=== PATIENT | female | born 1970 | race Caucasian/White ===

== ENCOUNTER 2018-10-31 22:29 | Emergency (ER) | payer MEDICAID ==
[~2018-10-31] VITALS: Ht 162.6 cm; Wt 88.0 kg
[2018-10-31] MEDS ORDERED: morphine 4 MG/ML inj SYRINge IM ONE (23:25)
[2018-10-31] MEDS ORDERED: HYDR-4383 PO (23:46)
[2018-10-31 23:56] VITALS: BP 131/78
== END 2018-10-31 23:58 | disposition home or self-care (01) ==
LOC: ER 22:30
DX: M25.562 Pain in left knee (principal); Z91.040 Latex allergy status; Z79.899 Other long term (current) drug therapy; Z98.890 Other specified postprocedural states
CPT/HCPCS: 73560; 96372; 99284; J2270

== ENCOUNTER 2018-11-16 14:24 | Emergency (ER) | payer MEDICAID ==
[~2018-11-16] VITALS: Ht 162.6 cm; Wt 91.0 kg
[~2018-11-16 14:24] MED LIST: ENOX40SY7 SQ; FLUO20CA22 PO; HYDR-4383 PO; ROPI0.2534 PO; SIMV20TA PO
[2018-11-16] MEDS ORDERED: OXYC-138 PO (16:31)
[2018-11-16] MEDS ORDERED: HYDR50TA65 PO (16:31)
[2018-11-16] MEDS ORDERED: GABA600T13 PO (16:31)
--- NOTE | 2018-11-16 16:46 | NUR ---
NURSING NOTE: Pt requested warm blanket. Resting on R side, no s/s distress at this time. Awaiting medication orders. RR even unlabored.
[2018-11-16] MEDS ORDERED: hydrOXYzine 25 MG tablet PO PRN (17:05)
[2018-11-16] MEDS ORDERED: oxyCODONE/APAP 10/325mg tablet PO PRN (17:05)
[2018-11-16 17:27] LABS: URINE AMPHETAMINE SCREEN NEGATIVE (Neg); URINE BARBITUATE SCREEN NEGATIVE (Neg); URINE BENZODIAZEPINES SCREEN NEGATIVE (Neg); URINE CANNABINOID SCREEN NEGATIVE (Neg); URINE COCAINE SCREEN NEGATIVE (Neg); URINE METHADONE SCREEN NEGATIVE (Neg); URINE OPIATE SCREEN NEGATIVE (Neg); URINE PHENCYCLIDINE SCREEN NEGATIVE (Neg)
[2018-11-16 17:30] VITALS: BP 103/56
--- NOTE | 2018-11-16 18:20 | NUR ---
Spoke to pt. She states that she wants to leave and is scared to go an inpatient psych facility. SHe just wants to go home, states she does not have SI at this time, even though she did state she had those feelings the hour prior. I discussed with Dr Amin who states that she does not have a mental health hold and she can leave whenever she wants. When Dr Amin came over to d/w pt she changed her mind and wants to stay. Dr Amin advised her to at least stay for the tele psyche consult. If she wants to leave in the meantime she can be discharged
[2018-11-16] MEDS ORDERED: atorvastatin 10mg tablet PO SCH (21:00)
[2018-11-16] MEDS ORDERED: ROPINIRole 1mg tablet PO SCH (21:00)
[2018-11-17] MEDS ORDERED: gabapentin 300mg capsule PO SCH
[2018-11-17] MEDS ORDERED: FLUoxetine 20mg capsule PO SCH (08:00)
== END 2018-11-16 19:01 | disposition home or self-care (01) ==
LOC: ER 14:24
DX: F32.9 Major depressive disorder, single episode, unspecified (principal); E78.00 Pure hypercholesterolemia, unspecified; F17.200 Nicotine dependence, unspecified, uncomplicated; F15.90 Other stimulant use, unspecified, uncomplicated; Z98.51 Tubal ligation status; Z91.040 Latex allergy status; Z91.018 Allergy to other foods
CPT/HCPCS: 80305; 99284

== ENCOUNTER 2018-12-03 07:46 | Inpatient (IN) | payer MEDICAID ==
[2018-11-21 13:53] LABS: CLARITY,URINE CLEAR (Clear); COLOR,URINE YELLOW (Yellow); GLUCOSE, URINE NEGATIVE (Neg); KETONES,URINE NEGATIVE (Neg); LEUKOCYTE ESTERASE ,URINE NEGATIVE (Neg); NITRITES, URINE NEGATIVE (Neg); OCCULT BLOOD,URINE NEGATIVE (Neg); PROTEIN,URINE NEGATIVE (Neg); UROBILINOGEN,URINE 0.2 E.U/dL (0.2-1.0)
[2018-11-21 13:56] LABS: UA COLLECTION TYPE CLN CATCH MIDSTREAM
[2018-11-21 14:16] LABS: ALBUMIN 3.9 G/DL (3.4-5.0); ALKALINE PHOSPHATASE 79 IU/L (46-116); BLOOD UREA NITROGEN 17 MG/DL (7-18); BUN/CREATININE RATIO 18.1 (6.6-38.0); CHLORIDE 104 MMOL/L (99-107); CREATININE 0.94 MG/DL (0.40-0.90); PRE OP ALT 24 U/L (30-65); PRE OP ANION GAP 9 (8-16); PRE OP AST 15 U/L (10-37); PRE OP BILIRUB, TOTAL 0.6 MG/DL (0.0-1.0); PRE OP GLUCOSE 93 MG/DL (70-104); PRE OP SODIUM 139 MMOL/L (135-145); TOTAL CARBON DIOXIDE 25.6 MMOL/L (24-32); TOTAL PROTEIN 7.9 G/DL (6.4-8.2); eGFR 64 ML/MIN
[2018-11-21 15:36] LABS: BASOPHILS # (AUTO) 0.1 X10'3 (0-0.2); BASOPHILS % (AUTO) 0.8 % (0-1); EOSINOPHILS # (AUTO) 0.1 X10'3 (0-0.9); EOSINOPHILS % (AUTO) 1.4 % (0-6); LYMPHOCYTES # (AUTO) 1.7 X10'3 (1.1-4.8); LYMPHOCYTES % (AUTO) 26.3 % (21-51); MEAN CORPUSCULAR HEMOGLOBIN 29.4 PG (27.0-31.0); MEAN CORPUSCULAR HGB CONC 33.5 g/dL (33.0-36.5); MEAN CORPUSCULAR VOLUME 87.6 FL (78-98); MEAN PLATELET VOLUME 8.4 FL (7.4-10.4); MONOCYTES # (AUTO) 0.4 X10'3 (0-0.9); NEUTROPHILS # (AUTO) 4.3 X10'3 (1.8-7.7); NEUTROPHILS % (AUTO) 65.5 % (42-75); PRE OP HEMATOCRIT 40.7 % (35.0-45.0); PRE OP HEMOGLOBIN 13.6 g/dL (12.0-16.0); PRE OP PLATELET COUNT 300 X10'3 (140-440); RED BLOOD COUNT 4.65 X10'6 (4.20-5.60); RED CELL DISTRIBUTION WIDTH 16.1 % (11.5-14.5)
[2018-12-03] VITALS (23 sets, daily range): BP systolic 100–156; BP diastolic 43–94
[~2018-12-03] VITALS: Ht 162.6 cm; Wt 91.3 kg
[~2018-12-03 07:46] MED LIST changes: +BUSP10TA11 PO; -ENOX40SY7 SQ; -FLUO20CA22 PO; +FLUO40CA10 PO; +GABA600T13 PO; -HYDR-4383 PO; +HYDROmorphone 1 mg/ml syringe IV PRN; +HYDROmorphone inj. 0.5 MG/0.5 ML DISP.SYRIN IV PRN; +LORA0.5T PO; +NICO-687 TOP; +OXYC-150 PO; +acetaminophen 325mg tablet PO ONE; +acetaminophen 325mg tablet PO PRN; +bisacodyl 10mg suppository rectal RC PRN; +cefazolin/dext.iso 2gm/50ml 50 ML IV ONE; +celeCOXIB 100mg capsule PO ONE; +diphenhydrAMINE 25mg capsule PO PRN; +famotidine 20mg tablet PO ONE; +gabapentin 300mg capsule PO ONE; +magnesium hydroxide 30ml (MOM) UD suspension PO PRN; +metoclopramide 5 mg/ml inj IV ONE; +ondansetron/PF 4mg/2ml inj IV PRN; +oxyCODONE SR 10mg (sust. release) tab -2 tabs (20mg) PO ONE; +oxyCODONE/APAP 10/325mg tablet PO PRN; +ringers solution, lacted 1,000 ML IV SCH; +tranexamic acid inj. 1,000 MG in normal saline 100 ML IV ONE; +vancomycin inj 1,500 MG in normal saline 300ml IV soln IV ONE
[2018-12-03] MEDS: multivitamins, therapeutics tablet PO SCH (08:00)
[2018-12-03] MEDS: ascorbic acid 500mg tablet PO SCH ×2 (08:00→19:31)
[2018-12-03] MEDS ORDERED: ketorolac tromethamine 15mg/ml inj. IV SCH (08:00)
[2018-12-03] MEDS: gabapentin 300mg capsule PO SCH ×3 (08:00→21:36)
[2018-12-03] MEDS ORDERED: aspirin 325mg tablet PO SCH (08:30)
[2018-12-03] MEDS ORDERED: ketorolac trometh. 30mg/ml inj. ONE (10:06)
[2018-12-03] MEDS ORDERED: vancomycin 1,000mg inj ONE (10:06)
[2018-12-03] MEDS ORDERED: ROPIVAcaine inj 250 MG, CloNIDine/PF inj 80 MCG, epiNEPHrine inj 0.5 MG in normal salin... IU ONE (10:55)
[2018-12-03] MEDS ORDERED: tetracaine 1% (10mg/ml) pres. free inj. ONE (11:06)
[2018-12-03] MEDS ORDERED: fentaNYL/PF 50MCG/1 ML 2ML syringe ONE (11:07)
[2018-12-03] MEDS ORDERED: MIDAZolam 1mg/ml 10ml vial ONE (11:07)
[2018-12-03] MEDS ORDERED: ringers solution, lacted 1,000 ML IV SCH (12:04)
[2018-12-03] MEDS ORDERED: ROPIVAcaine 0.2%/PF PAIN PUMP 550 ML IJ SCH (12:04)
[2018-12-03] MEDS ORDERED: morphine 4 MG/ML inj SYRINge IV PRN ×2 (12:05)
[2018-12-03] MEDS ORDERED: meperidine/PF 25mg/ml syringe IV PRN ×3 (12:05)
[2018-12-03] MEDS ORDERED: ondansetron/PF 4mg/2ml inj IV PRN (12:05)
[2018-12-03] MEDS ORDERED: proCHLORperazine 10 MG/2 ml inj IV PRN (12:05)
[2018-12-03] MEDS ORDERED: propofol inj 20 ML IV ONE ×2 (13:15→13:16)
[2018-12-03] MEDS ORDERED: ROPIVAcaine 0.5% (5mg/ml) 30ml vial ONE (13:15)
[2018-12-03] MEDS: ketorolac tromethamine 15mg/ml inj. IV SCH ×2 (14:00→19:30)
--- NOTE | 2018-12-03 14:22 | NUR ---
Received from OR via BED, accompanied by Anesthesiologist DR PHILLIPS and report given by Anesthesiologist. PT AWAKE, DENIES PAIN, LEFT KNEE W/DRSG/ICE PACK, EDOUARD DRAIN, ADDUCTOR CANAL CATHETER, LEG WRAP, CDI. PTS HR DOWN TO MID 30'S, PT ASYMPTOMATIC, DR PHILLIPS GAVE .2 MG ROBINUL, HR INCREASED BACK UP TO MID 70'S. BP STABLE THROUGHOUT. Addendum: 12/03/18 at 1502 by Hetal Forbes RN Amended: Links added.
[2018-12-03] MEDS: potassium cl 20mEq in 1/2 NS 1,000 ML IV SCH ×2 (14:23→17:06)
--- NOTE | 2018-12-03 14:25 | NUR ---
LATE ENTRY - DERMA TONE LEVEL T-9/T-10
[2018-12-03] MEDS ORDERED: gabapentin 300mg capsule PO SCH (16:00)
--- NOTE | 2018-12-03 16:22 | NUR ---
Report called to receiving nurse. Transferred via BED, 1 BAG OF PT Belongings W/GLASSES, DENTURES, 1 CELL PHONE SENT W/PT TO ROOM 4008, RECEIVING RN AT BEDSIDE TO RECEIVE PT, BLL, SIDE RAILS UP X 2, CALL LIGHT GIVEN, PT ORIENTED TO ROOM, SAFETY. Special Issues communicated to receiving nurse. YES. Addendum: 12/03/18 at 1627 by Hetal Forbes RN Amended: Links added.
[2018-12-03] MEDS: oxyCODONE/APAP 10/325mg tablet PO PRN ×2 (17:40→21:35)
--- NOTE | 2018-12-03 18:30 | NUR ---
Patient in room ORTHO 4008. I have received report from FLAKITA CAAL and had the opportunity to ask questions and assume patient care.
[2018-12-03] MEDS: sennosides 8.6mg tablet PO SCH (21:00)
[2018-12-03] MEDS: busPIRone 5mg tablet PO SCH (21:34)
[2018-12-03] MEDS: atorvastatin 10mg tablet PO SCH (21:35)
[2018-12-03] MEDS: cefazolin/dext.iso 2gm/100ml 100 ML IV SCH (21:36)
[2018-12-03] MEDS: ROPINIRole 1mg tablet PO SCH (21:36)
[2018-12-04] MEDS: ketorolac tromethamine 15mg/ml inj. IV SCH ×4 (01:55→19:31)
[2018-12-04] MEDS: potassium cl 20mEq in 1/2 NS 1,000 ML IV SCH ×4 (01:59→22:47)
[2018-12-04 02:00] VITALS: BP 138/65
[2018-12-04] MEDS: oxyCODONE/APAP 10/325mg tablet PO PRN ×2 (05:43→19:32)
[2018-12-04 06:00] VITALS: BP 128/77
[2018-12-04 06:02] LABS: BASOPHILS % (AUTO) 0.3 % (0-1); EOSINOPHILS % (AUTO) 0 % (0-6); HEMATOCRIT 32.8 % (35.0-45.0); HEMOGLOBIN 11.4 g/dl (12.0-16.0); LYMPHOCYTES # (AUTO) 0.6 X10'3 (1.1-4.8); LYMPHOCYTES % (AUTO) 5.7 % (21-51); MEAN CORPUSCULAR HEMOGLOBIN 30.2 PG (27.0-31.0); MEAN CORPUSCULAR HGB CONC 34.7 g/dL (33.0-36.5); MEAN CORPUSCULAR VOLUME 86.9 FL (78-98); MONOCYTES # (AUTO) 0.5 X10'3 (0-0.9); MONOCYTES % (AUTO) 4.4 % (2-12); NEUTROPHILS # (AUTO) 9.7 X10'3 (1.8-7.7); NEUTROPHILS % (AUTO) 89.6 % (42-75); PLATELET COUNT 177 X10'3 (140-440); RED BLOOD COUNT 3.78 X10'6 (4.20-5.60); RED CELL DISTRIBUTION WIDTH 15.9 % (11.5-14.5); WHITE BLOOD COUNT 10.9 X10'3 (4.5-11.0)
[2018-12-04 06:26] LABS: ANION GAP 9 (8-16); CHLORIDE 106 MMOL/L (99-107); POTASSIUM 4.3 MMOL/L (3.5-5.1); SODIUM 136 MMOL/L (135-145); TOTAL CARBON DIOXIDE 20.8 MMOL/L (24-32)
--- NOTE | 2018-12-04 06:27 | NUR ---
PT HAS A RESTRAINING ORDER AGAINST "ENZO" DO NOT GIVE INFORMATION.
--- NOTE | 2018-12-04 06:31 | NUR ---
Problems reprioritized. Patient report given, questions answered & plan of care reviewed with FLAKITA YODER.
[2018-12-04] MEDS: cefazolin/dext.iso 2gm/100ml 100 ML IV SCH ×2 (09:50→19:25)
[2018-12-04] MEDS: multivitamins, therapeutics tablet PO SCH (09:51)
[2018-12-04] MEDS: gabapentin 300mg capsule PO SCH ×3 (09:51→19:32)
[2018-12-04] MEDS: ascorbic acid 500mg tablet PO SCH ×2 (09:51→19:31)
[2018-12-04] MEDS: aspirin 325mg tablet PO SCH (09:51)
[2018-12-04] MEDS: busPIRone 5mg tablet PO SCH ×2 (09:51→19:31)
[2018-12-04] MEDS: FLUoxetine 20mg capsule PO SCH (09:52)
[2018-12-04] MEDS ORDERED: ROPIVAcaine inj 250 MG, CloNIDine/PF inj 80 MCG, epiNEPHrine inj 0.5 MG in normal salin... IU ONE (10:15)
--- NOTE | 2018-12-04 13:16 | NUR ---
Joint replacement consult: Pt seen by MARISOL for written/verbal high protein ed. RD reviewed high protein needs for wound healing, immune strength, high protein foods, and protein supplementation options. RD contact information provided in case of further questions. Pt agrees to [facility] wound healing isha GIPSON; MARISOL and notified. Pt hx gastric bypass and uses protein powders at home. Reports 50# wt gain since unable to ambulate r/t joint issues pre-op. Addendum: 12/04/18 at [address] Amended: Links added.
[2018-12-04] MEDS ORDERED: High Protein Smoothie Arginine/Glut./Ca2+Bmb (Juven 19.3pkt) 240ml cup PO SCH (17:30)
[2018-12-04 18:00] VITALS: BP 154/49
--- NOTE | 2018-12-04 18:30 | NUR ---
Patient in room ORTHO 4008. I have received report from FLAKITA YODER and had the opportunity to ask questions and assume patient care.
[2018-12-04] MEDS: ROPINIRole 1mg tablet PO SCH (19:32)
[2018-12-04] MEDS: sennosides 8.6mg tablet PO SCH (19:32)
[2018-12-04] MEDS: atorvastatin 10mg tablet PO SCH (19:33)
[2018-12-04 22:00] VITALS: BP 100/49
[2018-12-05] MEDS: cefazolin/dext.iso 2gm/100ml 100 ML IV SCH (01:39)
[2018-12-05 05:00] VITALS: BP 125/71
[2018-12-05] MEDS: oxyCODONE/APAP 10/325mg tablet PO PRN ×2 (05:23→09:22)
[2018-12-05 06:00] LABS: BASOPHILS % (AUTO) 0.4 % (0-1); EOSINOPHILS # (AUTO) 0.1 X10'3 (0-0.9); EOSINOPHILS % (AUTO) 2.3 % (0-6); HEMATOCRIT 30.4 % (35.0-45.0); HEMOGLOBIN 10.5 g/dl (12.0-16.0); LYMPHOCYTES # (AUTO) 1.2 X10'3 (1.1-4.8); MEAN CORPUSCULAR HEMOGLOBIN 30.4 PG (27.0-31.0); MEAN CORPUSCULAR HGB CONC 34.7 g/dL (33.0-36.5); MEAN CORPUSCULAR VOLUME 87.5 FL (78-98); MEAN PLATELET VOLUME 8.2 FL (7.4-10.4); MONOCYTES # (AUTO) 0.5 X10'3 (0-0.9); MONOCYTES % (AUTO) 7.7 % (2-12); NEUTROPHILS # (AUTO) 4.2 X10'3 (1.8-7.7); NEUTROPHILS % (AUTO) 69.6 % (42-75); PLATELET COUNT 160 X10'3 (140-440); RED BLOOD COUNT 3.47 X10'6 (4.20-5.60); RED CELL DISTRIBUTION WIDTH 16.2 % (11.5-14.5); WHITE BLOOD COUNT 6.1 X10'3 (4.5-11.0)
[2018-12-05] MEDS ORDERED: ASPI-1 PO (06:16)
[2018-12-05] MEDS ORDERED: celeCOXIB 100mg capsule PO SCH (08:00)
[2018-12-05] MEDS: multivitamins, therapeutics tablet PO SCH (09:21)
[2018-12-05] MEDS: aspirin 325mg tablet PO SCH (09:21)
[2018-12-05] MEDS: ascorbic acid 500mg tablet PO SCH (09:21)
[2018-12-05] MEDS: gabapentin 300mg capsule PO SCH (09:22)
[2018-12-05] MEDS: FLUoxetine 20mg capsule PO SCH (09:22)
[2018-12-05] MEDS: busPIRone 5mg tablet PO SCH (09:22)
== END 2018-12-05 10:00 | disposition home or self-care (01) | DRG 302 ==
LOC: EEVIPCON 07:46 → PAS IN 07:46 → EDSTATUS 11:45 → ORTHO 4S 16:15
PROVIDERS: ADMIT Orthopaedic Surgery; ATTEND Orthopaedic Surgery
PROC: 0SRD0EZ Replacement of Left Knee Joint with Articulating Spacer, Open Approach (ICD-10-PCS; 2018-12-03)
PROC: 0SPD08Z Removal of Spacer from Left Knee Joint, Open Approach (ICD-10-PCS; 2018-12-03)
PROC: 3E0T3BZ Introduction of Anesthetic Agent into Peripheral Nerves and Plexi, Percutaneous Approach (ICD-10-PCS; principal; 2018-12-03 11:08)
DX: T84.093A Other mechanical complication of internal left knee prosthesis, initial encounter (principal); D62 Acute posthemorrhagic anemia; E78.5 Hyperlipidemia, unspecified; K21.9 Gastro-esophageal reflux disease without esophagitis; M19.90 Unspecified osteoarthritis, unspecified site; F41.9 Anxiety disorder, unspecified; Y79.2 Prosthetic and other implants, materials and accessory orthopedic devices associated with adverse incidents; F32.9 Major depressive disorder, single episode, unspecified; Z87.891 Personal history of nicotine dependence; Z91.040 Latex allergy status; Z91.018 Allergy to other foods; Z79.899 Other long term (current) drug therapy; Y92.89 Other specified places as the place of occurrence of the external cause
CPT/HCPCS: 36415; 73560; 80051; 80053; 81003; 82948; 85025; 85610; 85730; 86885; 86900; 86901; 87070; 97110; 97116; 97162; A6449; A6455; A7000; A9272; C1713; C1758; C1776; G0378; J0171; J0690; J0735; J1885; J2250; J2704; J2765; J2795; J3010; J3370; J7030; J7120

== ENCOUNTER → 2021-04-29 | Emergency (ER) | payer MEDICAID ==
[~2021-04-29] VITALS: Ht 160 cm; Wt 75.0 kg
[~2021-04-29] MED LIST changes: +ASPI-1 PO; -HYDROmorphone 1 mg/ml syringe IV PRN; -HYDROmorphone inj. 0.5 MG/0.5 ML DISP.SYRIN IV PRN; -NICO-687 TOP; -acetaminophen 325mg tablet PO ONE; -acetaminophen 325mg tablet PO PRN; -bisacodyl 10mg suppository rectal RC PRN; -cefazolin/dext.iso 2gm/50ml 50 ML IV ONE; -celeCOXIB 100mg capsule PO ONE; -diphenhydrAMINE 25mg capsule PO PRN; -famotidine 20mg tablet PO ONE; -gabapentin 300mg capsule PO ONE; -magnesium hydroxide 30ml (MOM) UD suspension PO PRN; -metoclopramide 5 mg/ml inj IV ONE; -ondansetron/PF 4mg/2ml inj IV PRN; -oxyCODONE SR 10mg (sust. release) tab -2 tabs (20mg) PO ONE; -oxyCODONE/APAP 10/325mg tablet PO PRN; -ringers solution, lacted 1,000 ML IV SCH; -tranexamic acid inj. 1,000 MG in normal saline 100 ML IV ONE; -vancomycin inj 1,500 MG in normal saline 300ml IV soln IV ONE
[2021-04-29] MEDS: ketorolac trometh. 30mg/ml inj. IM ONE (18:40)
[2021-04-29] MEDS: morphine 10mg/ml inj. IM ONE ×2 (18:40→20:45)
[2021-04-29] MEDS: triamcinolone acetonide 40mg/ml inj IM ONE ×2 (18:40→20:45)
== END | disposition home or self-care (01) ==
LOC: ER 18:22
DX: G89.29 Other chronic pain (principal); M54.5 Low back pain; M79.604 Pain in right leg; F15.10 Other stimulant abuse, uncomplicated; E78.00 Pure hypercholesterolemia, unspecified; F32.9 Major depressive disorder, single episode, unspecified; Z91.040 Latex allergy status; Z91.018 Allergy to other foods
CPT/HCPCS: 96372; 99284; J1885; J2270; J3301

== ENCOUNTER 2023-10-01 06:58 | Day surgery (SDC) | payer MEDICAID ==
[2023-09-28 14:11] LABS: BASOPHILS # (AUTO) 0.1 X10'3 (0-0.2); BASOPHILS % (AUTO) 0.8 % (0-1); EOSINOPHILS # (AUTO) 0.1 X10'3 (0-0.9); EOSINOPHILS % (AUTO) 1.7 % (0-6); LYMPHOCYTES # (AUTO) 2.1 X10'3 (1.1-4.8); LYMPHOCYTES % (AUTO) 24.4 % (21-51); MEAN CORPUSCULAR HEMOGLOBIN 30.5 PG (27.0-31.0); MEAN CORPUSCULAR HGB CONC 33.5 g/dL (33.0-36.5); MEAN CORPUSCULAR VOLUME 91.1 FL (78-98); MEAN PLATELET VOLUME 7.6 FL (7.4-10.4); MONOCYTES # (AUTO) 0.5 X10'3 (0-0.9); MONOCYTES % (AUTO) 5.8 % (2-12); NEUTROPHILS # (AUTO) 5.7 X10'3 (1.8-7.7); NEUTROPHILS % (AUTO) 67.3 % (42-75); PRE OP HEMATOCRIT 42.4 % (35.0-45.0); PRE OP HEMOGLOBIN 14.2 g/dL (12.0-16.0); PRE OP PLATELET COUNT 377 X10'3 (140-440); PRE OP WHITE BLOOD COUNT 8.5 10'3 (4.8-10.8); RED BLOOD COUNT 4.65 X10'6 (4.20-5.60); RED CELL DISTRIBUTION WIDTH 12.9 % (11.5-14.5)
[2023-09-28 14:37] LABS: ALBUMIN 3.3 G/DL (3.4-5.0); ALKALINE PHOSPHATASE 119 IU/L (46-116); BLOOD UREA NITROGEN 17 MG/DL (7-18); BUN/CREATININE RATIO 23.3 (10.0-20.0); CALCIUM 8.9 MG/DL (8.5-10.1); CHLORIDE 105 MMOL/L (99-107); CREATININE 0.73 MG/DL (0.40-0.90); PRE OP ALT 31 U/L (30-65); PRE OP ANION GAP 10 (8-16); PRE OP BILIRUB, TOTAL 0.6 MG/DL (0.0-1.0); PRE OP POTASSIUM 3.7 MMOL/L (3.4-5.1); PRE OP SODIUM 139 MMOL/L (135-145); TOTAL CARBON DIOXIDE 23.9 MMOL/L (24-32); TOTAL PROTEIN 6.7 G/DL (6.4-8.2); eGFR 83 ML/MIN
[2023-09-28 14:46] LABS: PRE OP AST 18 U/L (10-37)
[2023-09-28 14:54] LABS: PRE OP GLUCOSE 184 MG/DL (70-104)
[2023-10-01] VITALS (8 sets, daily range): BP systolic 106–122; BP diastolic 72–87; PULSE 64–83; RESP 13–22; TEMP 98.1; O2SAT 97–99
[~2023-10-01] VITALS: Ht 160 cm; Wt 60.1 kg
[~2023-10-01 06:58] MED LIST changes: +BUPIVAcaine/PF 2.5mg/ml (0.25%) 10ml vial ONE; +SIMV-342 PO; -SIMV20TA PO
[2023-10-01] MEDS ORDERED: morphine 4 MG/ML inj SYRINge IV PRN (07:35)
[2023-10-01] MEDS ORDERED: ringers solution, lacted 1,000 ML IV SCH (07:35)
[2023-10-01] MEDS ORDERED: labetalol 20mg/4ml (5mg/ml) syringe IV PRN (07:35)
[2023-10-01] MEDS ORDERED: hydrALAZINE 20mg/ml inj. IV PRN (07:35)
[2023-10-01] MEDS ORDERED: fentaNYL/PF 50MCG/1 ML 2ML syringe IV PRN ×2 (07:35)
[2023-10-01] MEDS ORDERED: ondansetron/PF 4mg/2ml inj IV PRN (07:35)
[2023-10-01] MEDS ORDERED: proCHLORperazine 10 MG/2 ml inj IV PRN (07:35)
[2023-10-01] MEDS ORDERED: meperidine/PF 25mg/ml syringe IV PRN (07:35)
[2023-10-01] MEDS ORDERED: morphine 2 MG/ML inj. syringe IV PRN (07:35)
[2023-10-01] MEDS ORDERED: ketorolac trometh. 30mg/ml inj. IV ONE (07:35)
[2023-10-01] MEDS ORDERED: acetaminophen 1,000mg/100ml IV 100 ML IV ONE (07:35)
[2023-10-01] MEDS ORDERED: BUSP5TAB3 PO (08:12)
[2023-10-01] MEDS ORDERED: BACL20TA PO (08:12)
[2023-10-01] MEDS ORDERED: ACET-1008 PO (08:12)
[2023-10-01] MEDS ORDERED: ASPI-611 PO ×2 (08:12→08:18)
[2023-10-01] MEDS ORDERED: ATOR80TA PO (08:16)
[2023-10-01] MEDS ORDERED: fentaNYL/PF 50MCG/1 ML 2ML syringe ONE (09:45)
[2023-10-01] MEDS ORDERED: midazolam 1 mg/ML 2ml injection ONE (09:45)
[2023-10-01] MEDS ORDERED: propofol inj 20 ML IV ONE (09:55)
[2023-10-01] MEDS ORDERED: BUPIVAcaine/PF 2.5 mg/ml (0.25%) 30ml vial IJ ONE (10:10)
[2023-10-01] MEDS ORDERED: BUPIVAcaine/PF 2.5mg/ml (0.25%) 10ml vial ONE (11:52)
[2024-10-01] MEDS ORDERED: ringers solution, lacted 1,000 ML IV SCH (05:00)
[2024-10-01] MEDS ORDERED: cefazolin 2gm/D5W 100mL 100 ML IV ONE (05:30)
[2024-10-01] MEDS ORDERED: famotidine 20mg tablet PO ONE (05:30)
== END 2023-10-01 11:42 | disposition home or self-care (01) ==
LOC: PAS 06:58
PROVIDERS: ATTEND Orthopaedic Surgery Hand Surgery
DX: G56.02 Carpal tunnel syndrome, left upper limb (principal); I10 Essential (primary) hypertension; G89.4 Chronic pain syndrome; G47.00 Insomnia, unspecified; E66.8 Other obesity; Z68.31 Body mass index [BMI] 31.0-31.9, adult; M41.9 Scoliosis, unspecified; E11.59 Type 2 diabetes mellitus with other circulatory complications; F17.210 Nicotine dependence, cigarettes, uncomplicated; E78.5 Hyperlipidemia, unspecified; F32.A Depression, unspecified; F41.9 Anxiety disorder, unspecified; G25.81 Restless legs syndrome; K21.9 Gastro-esophageal reflux disease without esophagitis; I69.351 Hemiplegia and hemiparesis following cerebral infarction affecting right dominant side; I73.00 Raynaud's syndrome without gangrene; Z79.899 Other long term (current) drug therapy; Z79.82 Long term (current) use of aspirin; F15.129 Other stimulant abuse with intoxication, unspecified; Z96.653 Presence of artificial knee joint, bilateral; Z98.84 Bariatric surgery status; Z98.890 Other specified postprocedural states; Z98.51 Tubal ligation status; Z72.89 Other problems related to lifestyle
CPT/HCPCS: 36415; 64721; 80053; 82948; 85025; 93005; J0131; J2250; J2405; J2704; J3010; J3490; J7030; J7120; Z7506; Z7512; A4215; A7000

== ENCOUNTER 2025-02-28 02:19 | Emergency (ER) | payer MEDICARE, MEDICAID ==
[~2025-02-28] VITALS: Ht 157.5 cm; Wt 52.3 kg
[~2025-02-28 02:19] MED LIST changes: +ACET-1008 PO; -ASPI-1 PO; +ASPI-611 PO; +ATOR-429 PO; +BACL20TA PO; -BUPIVAcaine/PF 2.5mg/ml (0.25%) 10ml vial ONE; -BUSP10TA11 PO; +BUSP5TAB3 PO; -FLUO40CA10 PO; -GABA600T13 PO; -LORA0.5T PO; -OXYC-150 PO; -SIMV-342 PO
[2025-02-28 02:23] VITALS: TEMP 98.8
[2025-02-28] MEDS: ketorolac trometh 30MG/ML vial 30 MG/ML VIAL IM ONE (02:38)
--- NOTE | 2025-02-28 03:27 | RADIOLOGY REPORT ---
INDICATION: R hip pain, GLF COMPARISON: None TECHNIQUE: CT of the right hip was performed without contrast. Volume transverse images were obtained and reconstructed in multiple planes using bone and soft tissue algorithms. Radiation Dose Information: CT Dose: CTDI volume is 5 mGy. Dose-length product is 126 mGy*cm FINDINGS: The alignment is normal. Moderate degenerative changes of the right hip. Minimally displaced comminuted fracture of the right greater trochanter. There is no joint effusion. The soft tissues are normal. IMPRESSION: Minimally displaced comminuted fracture of the right greater trochanter.
[2025-02-28] MEDS ORDERED: HYDR-3965 PO ×2 (04:08→12:04)
--- NOTE | 2025-02-28 04:09 | Physician Documentation ---
History of Present Illness ~ Chief Complaint: Hip pain Stated Complaint: PAIN Time Seen by MD: 02:25 Mode of Arrival: EMS, Stretcher HPI 54 year old female who fell at home 2 days ago and was seen at [facility] for R hip pain. She reports nothing was found during this workup but reports continued severe R hip pain. Denies other injury, has difficulty walking. Medication Reconciliation Allergies: Coded Allergies: latex (Verified Allergy, Mild, RASH, 12/02/18) walnut (Verified Allergy, Mild, RASH / BUMPS ON TONGUE, 12/02/18) Scheduled Acetaminophen (Tylenol), 650 MG PO BID, (Reported) Aspirin (Aspir 81), 1 TAB PO DAILY, (Reported) Aspirin (Aspir 81), 1 TAB PO DAILY, (Reported) Atorvastatin Calcium* (Lipitor*), 1 TAB PO DAILY, (Reported) Baclofen (Baclofen), 1 TAB PO DAILY, (Reported) Buspirone Hcl* (Buspar*), 1 TAB PO BID, (Reported) Ropinirole Hcl (Ropinirole Hcl), 1 MG PO HS, (Reported) Past Medical History Past Medical History: High Cholesterol, *MUSCULOSKELETAL*, Depression Past Surgical History: gastric bypass, orthopedic surgeries, tubal ligation Other Past Surgical History: CTS surgery, Alcohol Use: Heavy Drug Use: methamphetamine Lives with: Spouse Lives In: Home Review of Systems All Other Systems at this time: Reviewed and Negative Physical Exam Vital Signs: RN Vital Signs have been reviewed: Yes, Temperature: 98.8, Source: Oral, Heart Rate: 93, Respiratory Rate: 16, BP: 122/85, Pulse Oximetry: 94, Weight: 52.270 Physical Exam HEENT: PERRL, moist oral mucosa, EOMI Pulmonary: No respiratory distress MSK: no deformity; R greater trochanter +TTP Skin: w/d/i, no rash Neuro: alert, nonfocal Psych: normal affect Progress Results/Orders Results/Orders Orders - CAMDEN DENTON MD Ct Lower Extremity (02/28/25 02:30) Completed Orders - CAMDEN DENTON MD Ketorolac Trometh 30mg/Ml Vial (Toradol (02/28/25 02:30) Ct Lower Extremity (02/28/25 02:30) Medications Received in ER Medications (Trade) Dose Ordered Sig/Emmanuel Route PRN Reason Start Time Stop Time Status Last Admin Dose Admin (Toradol inj. 30mg/ml) 30 mg ONCE ONCE IM 02/28/25 02:30 02/28/25 02:31 DC 02/28/25 02:38 30 MG Vital Signs 02/28/25 02/28/25 02/28/25 02:23 02:27 02:38 Temp 98.8 Pulse 93 Resp 18 18 16 B/P (MAP) 122/85 Pulse Ox 94 Medical Decision Making Findings 54 year old female with R hip tenderness and pain. CT demonstrated comminuted greater trochanter fracture. Counseled, reassured, discharged with pain medications. Differential Dx:Considerations: Include: Bursitis, Contusion, Dislocation, Fracture-femur, Fracture-hip, Fracture-open, Fracture-pelvis Departure Disposition: HOME / SELF CARE / HOMELESS Impression: Primary Impression: Fracture of greater trochanter Condition: Stable Discharge Instructions: Contusion (Bruise) Referrals: NO PRIMARY CARE PROVIDER (PCP) Prescriptions Hydrocodone Bit/Acetaminophen 5/325 MG ([place] 5/325 MG) 5 Mg/325 Mg Tablet 1 TAB PO TID PRN PRN for pain for 5 Days, #15 TAB Prov: CAMDEN DENTON MD 02/28/25 Education Educated: Patient Educated regarding: diagnosis, treatment, prognosis, need for follow up Signature Scribe Signature: . Attestation: . CAMDEN DENTON MD Feb 28, 2025 04:09
[2025-02-28] MEDS: HYDROcodone/acetaminophen 5mg/325mg tablet PO ONE (04:40)
[2025-02-28 04:53] VITALS: BP 124/86; PULSE 94; RESP 16; O2SAT 96
== END 2025-02-28 04:56 | disposition home or self-care (01) ==
LOC: ER 02:20
DX: S72.091A Other fracture of head and neck of right femur, initial encounter for closed fracture (principal); F15.90 Other stimulant use, unspecified, uncomplicated; F32.A Depression, unspecified; F10.90 Alcohol use, unspecified, uncomplicated; E78.00 Pure hypercholesterolemia, unspecified; Z98.51 Tubal ligation status; Z91.040 Latex allergy status; Z79.899 Other long term (current) drug therapy; Z79.82 Long term (current) use of aspirin; X58.XXXA Exposure to other specified factors, initial encounter; Y93.89 Activity, other specified; Y92.89 Other specified places as the place of occurrence of the external cause; Y99.8 Other external cause status; Y90.9 Presence of alcohol in blood, level not specified
CPT/HCPCS: 73700; 96372; 99285; J1885